=== PATIENT | male | born 1975 | race Caucasian/White ===

== ENCOUNTER 2019-09-30 22:06 | Emergency (ER) | payer SELFPAY ==
[2019-09-30 22:18] VITALS: BP 134/79; PULSE 100; RESP 16; TEMP 37.1; O2SAT 98; BMI 40.1
[2019-09-30 22:29] LABS: Microscopic, Urine URINE MICROSCOPIC (MICROSCOPIC)
[2019-09-30 22:32] LABS: Appearance,Urine CLEAR (Clear); Bilirubin,Urine Negative (Negative); Blood, Urine Negative (Negative); Color,Urine YELLOW (Yellow); Glucose,Urine (UA) 3+ (Negative); Ketones,Urine Negative (Negative); Leukocyte Esterase,Urine Negative (Negative); Nitrate,Urine Negative (Negative); Protein,Urine Negative (Negative); Urobilinogen,Urine 0.2 EU/dl (0.2)
[2019-09-30 22:42] LABS: Basophils # 0.1 K/mm3 (0-0.2); Basophils % 1.2 % (0.1-2.0); Eosinophils # 0.2 K/mm3 (0.0-0.4); Eosinophils % 2.4 % (0.1-12.0); Hematocrit 42.6 % (42.0-52.0); Hemoglobin 14.7 g/dL (14.1-18.0); Lymphocytes % 23.7 % (10-50); Mean Corpuscular HGB Conc 34.6 g/dL (31.8-35.4); Mean Corpuscular Hemoglobin 29.8 pg (27.0-31.2); Mean Corpuscular Volume 86.2 fl (80-94); Monocytes # 0.5 K/mm3 (0.1-1.0); Monocytes % 5.5 % (1.7-9.3); Neutrophils # 5.7 K/mm3 (1.8-7.8); Neutrophils % 67.1 % (37.0-80.0); Platelet Count 289 K/mm3 (142-424); Red Blood Count 4.95 M/mm3 (4.60-6.20); Red Cell Distribution Width 13.8 % (11.5-17.5); White Blood Count 8.4 K/mm3 (4.8-10.8)
[2019-09-30 22:44] VITALS: BP 0/0; PULSE 0; RESP 0; TEMP -17.7; TEMP 0
[2019-09-30 22:52] LABS: Alanine Aminotransferase 55 U/L (12-78); Albumin Level 5.3 g/dl (3.5-5.0); Albumin/Globulin Ratio 1.5 (1.1-1.8); Alkaline Phosphatase 131 U/L (38-126); Amylase 98 U/L (30-110); Aspartate Amino Transferase 47 U/L (17-59); Blood Urea Nitrogen 14 mg/dl (9-20); Calcium 10.1 mg/dl (8.4-10.2); Carbon Dioxide 31 mmol/L (22.0-30.0); Chloride 94 mmol/L (98-107); Creatinine Clearance Estimated 224 mL/min (50-200); Estimated Glomerular Filt Rate 92 ml/min (>60); GFR (African American) 111 ML/MIN (>60); Globulin 3.6 g/dL (1.3-3.2); Glucose 238 mg/dl (74-100); Lipase 333 U/L (23-300); Sodium 136 mmol/L (136-145); Total Protein,Serum 8.9 g/dl (6.3-8.2)
== END 2019-09-30 22:45 | disposition left against medical advice (07) ==
PROVIDERS: Emergency Provider Emergency Medicine
DX: Z53.21 Procedure and treatment not carried out due to patient leaving prior to being seen by health care provider (principal)
CPT/HCPCS: 80053; 81001; 82150; 83690; 85025; 96365; 96375; 99283; J2405